=== PATIENT | male | born 1955 | race Caucasian/White ===

== ENCOUNTER → 2017-04-21 | Outpatient (CLI) | payer OTHER | END | disposition home or self-care (01) | LOC: CARD 12:46 | PROVIDERS: ATTEND Family Medicine | DX: R09.02 Hypoxemia (principal) | CPT/HCPCS: 94060; 94726; 94729 ==

== ENCOUNTER → 2017-07-27 | Outpatient (CLI) | payer OTHER ==
[2017-07-27 14:04] LABS: ABG COLLECTION SITE LEFT RADIAL; COLLATERAL CIRCULATION TESTING NORMAL
== END | disposition home or self-care (01) ==
LOC: CARD 13:28
PROVIDERS: ATTEND Internal Medicine Critical Care Medicine
DX: I35.8 Other nonrheumatic aortic valve disorders (principal); I11.9 Hypertensive heart disease without heart failure; I77.819 Aortic ectasia, unspecified site; E78.5 Hyperlipidemia, unspecified
CPT/HCPCS: 36600; 82803; 93306

== ENCOUNTER → 2017-09-20 | Outpatient (CLI) | payer OTHER ==
[~2017-09-20] MED LIST: OMNIPAQUE 350 MG/ML, 100ML BOTTLE ONE
== END | disposition home or self-care (01) ==
LOC: CFH 12:59
PROVIDERS: ATTEND Nurse Practitioner Family
DX: R09.02 Hypoxemia (principal)
CPT/HCPCS: 71275; Q9967

== ENCOUNTER → 2017-09-22 | Outpatient (CLI) | payer OTHER | END | disposition home or self-care (01) | LOC: CVU 12:46 | PROVIDERS: ATTEND Nurse Practitioner Family | DX: I07.1 Rheumatic tricuspid insufficiency (principal); R09.02 Hypoxemia | CPT/HCPCS: 93306 ==

== ENCOUNTER → 2018-03-31 | Outpatient (CLI) | payer OTHER ==
[~2018-03-31] MED LIST changes: +ALBU8.5H8 INH; +ATEN50TA41 PO; +ATOR20TA9 PO; +AZEL137S4 NAS; +CETI10CA PO; +COLE1TAB2 PO; +FLUT100B INH; +FLUT9.9S NS; +GLUC-88 PO; +HYDR25TA6 PO; -OMNIPAQUE 350 MG/ML, 100ML BOTTLE ONE; +PRED10TA PO
[2018-03-31 09:49] LABS: ALANINE AMINOTRANSFERASE 37 U/L (12-78); ANION GAP 3 mmol/L (5-15); CALCIUM 9.4 mg/dL (8.5-10.1); CHLORIDE 100 mmol/L (98-107); CREATININE 1.05 mg/dL (0.7-1.3)
[2018-03-31 09:51] LABS: ALKALINE PHOSPHATASE 91 U/L (45-117); BILIRUBIN,TOTAL 0.6 mg/dL (0.2-1.0); TOTAL PROTEIN 8.5 g/dL (6.4-8.2)
== END | disposition home or self-care (01) ==
LOC: STAR 08:40
PROVIDERS: ATTEND Otolaryngology
DX: Z01.818 Encounter for other preprocedural examination (principal); J32.3 Chronic sphenoidal sinusitis
CPT/HCPCS: 36415; 80053; 93005

== ENCOUNTER 2018-04-04 06:08 | Observation (INO) | payer OTHER ==
[~2018-04-04] VITALS: Ht 185.4 cm; Wt 104.1 kg
[2018-04-04] MEDS ORDERED: BACITRACIN OINT 500U/GM, 15 GM ONE (06:36)
[2018-04-04] MEDS ORDERED: LIDOCAINE 1%-EPI 1:100K, 30ML ONE (06:36)
[2018-04-04] MEDS ORDERED: EPINEPHRINE TOPICAL SOLN 1 MG/ML, 30ML ONE (06:36)
[2018-04-04] MEDS ORDERED: FLUORESCEIN SODIUM 500 MG/5 ML ONE (06:36)
[2018-04-04] MEDS ORDERED: OXYMETAZOLINE NASAL SPRAY 0.05%, 15ML ONE (06:37)
[2018-04-04] MEDS ORDERED: LIDOCAINE-MPF 1%, 5ML ONE (06:55)
[2018-04-04] MEDS ORDERED: LIDOCAINE-MPF 1%, 2ML INFIL ONE (07:00)
[2018-04-04] MEDS: LACTATED RINGERS 1,000 ML IV SCH ×2 (07:07→12:10)
[2018-04-04] MEDS ORDERED: FENTANYL PF 100 MCG/2ML ONE (08:04)
[2018-04-04] MEDS ORDERED: MIDAZOLAM 1 MG/ML, 2ML ONE (08:04)
[2018-04-04] MEDS ORDERED: ROCURONIUM 10MG/ML,5ML ONE (08:07)
[2018-04-04] MEDS ORDERED: PROPOFOL 10 MG/ML, 20ML ONE (08:07)
[2018-04-04] MEDS ORDERED: SUCCINYLCHOLINE 20 MG/ML, 10ML ONE (08:07)
[2018-04-04] MEDS ORDERED: ONDANSETRON 2MG/ML, 2ML ONE (08:09)
[2018-04-04] MEDS ORDERED: EPHEDRINE 50 MG/ML, 1ML ONE (08:09)
[2018-04-04] MEDS ORDERED: CEFAZOLIN 1,000 MG ONE (08:09)
[2018-04-04] MEDS ORDERED: PROPOFOL 10 MG/ML, 50ML ONE (08:09)
[2018-04-04] MEDS ORDERED: DEXAMETHASONE 4 MG/ML, 5ML ONE (08:09)
[2018-04-04] MEDS ORDERED: PHENYLEPHRINE 10 MG/ML ONE (08:09)
[2018-04-04] MEDS ORDERED: OXYcodone 5 MG/5 ML ORAL.SOL UDC PO PRN (09:30)
[2018-04-04] MEDS ORDERED: PROMETHAZINE 25 MG/ML, 1ML IV PRN (09:30)
[2018-04-04] MEDS ORDERED: ACETAMINOPHEN 325 MG TABLET PO PRN (09:30)
[2018-04-04] MEDS ORDERED: ALBUTEROL/IPRATROPIUM 2.5MG/0.5MG, 3 ML NPPB PRN (09:30)
[2018-04-04] MEDS ORDERED: FENTANYL PF 100 MCG/2ML IV PRN (09:30)
[2018-04-04] MEDS ORDERED: MORPHINE SULFATE 4 MG/ML, 1ML IVPush PRN (11:30)
[2018-04-04] MEDS ORDERED: ALBUTEROL SULFATE 2.5 MG/3 ML NPPB PRN (11:30)
[2018-04-04] MEDS ORDERED: ONDANSETRON 2MG/ML, 2ML IVPush PRN (11:30)
[2018-04-04] MEDS ORDERED: ONDANSETRON ODT 4 MG PO PRN (11:30)
[2018-04-04] MEDS ORDERED: COLESTIPOL 1 GM TABLET PO PRN (11:30)
[2018-04-04] MEDS: AMPICILLIN/SULBACTAM 3 GM in SODIUM CHLORIDE 0.9% 100 ML IV SCH ×3 (12:10→23:34)
[2018-04-04] MEDS: HYDROCHLOROTHIAZIDE 25 MG TABLET PO SCH (12:11)
[2018-04-04 13:11] VITALS: BP 151/83
[2018-04-04] MEDS: HYDROcodone/APAP 5/325 TABLET PO PRN ×3 (13:40→23:37)
[2018-04-04 19:41] VITALS: BP 113/66
[2018-04-04] MEDS ORDERED: ATENOLOL 50 MG TABLET PO SCH (21:00)
[2018-04-04] MEDS ORDERED: ATORVASTATIN 20 MG TABLET PO SCH (21:00)
[2018-04-04 23:26] VITALS: BP 119/72
[2018-04-05 03:24] VITALS: BP 135/83
[2018-04-05] MEDS: AMPICILLIN/SULBACTAM 3 GM in SODIUM CHLORIDE 0.9% 100 ML IV SCH (06:05)
[2018-04-05 08:44] VITALS: BP 146/86
[2018-04-05] MEDS ORDERED: FLUTICASONE FUROATE 100MCG/INH INH SCH (09:00)
[2018-04-05] MEDS ORDERED: CETIRIZINE 10 MG TABLET PO SCH (09:00)
[2018-04-05] MEDS ORDERED: HYDROCHLOROTHIAZIDE 25 MG TABLET PO SCH (09:00)
[2018-04-05] MEDS: HYDROCHLOROTHIAZIDE 25 MG TABLET PO SCH (09:08)
== END 2018-04-05 10:48 | disposition home or self-care (01) ==
LOC: OUT 06:08 → 4NOR 11:06 → OUT 11:35 → 4NOR 16:13 → DCLOUNGE 04-05 10:34
PROVIDERS: ADMIT Otolaryngology; ATTEND Otolaryngology
DX: J32.8 Other chronic sinusitis (principal); J45.909 Unspecified asthma, uncomplicated
CPT/HCPCS: 31255; 31267; 31276; 31288; 87070; 87075; 87077; 87186; 87205; 88304; 96365; 96366; G0378; J0295; J0330; J0690; J1100; J2250; J2370; J2405; J2704; J3010; J3490; J7120; J7512

== ENCOUNTER 2018-05-17 17:06 | Emergency (ER) | payer OTHER ==
[~2018-05-17] VITALS: Ht 182.9 cm; Wt 103.0 kg
[2018-05-17 17:57] LABS: BASOPHILS # (AUTO) 0.04 x10^3/uL (0-0.1); BASOPHILS % (AUTO) 0 % (0-1); EOSINOPHILS # (AUTO) 0.63 x10^3/uL (0-0.4); EOSINOPHILS % (AUTO) 6 % (1-7); LYMPHOCYTES # (AUTO) 0.63 x10^3/uL (1-3.4); LYMPHOCYTES % (AUTO) 6 % (22-44); MD NO; MEAN CORPUSCULAR HGB CONC 34.1 g/dL (33.2-36.2); MEAN CORPUSCULAR VOLUME 90.9 fL (81-97); MEAN PLATELET VOLUME 7.9 fL (7.4-10.4); MONOCYTES # (AUTO) 0.49 x10^3/uL (0.2-0.8); MONOCYTES % (AUTO) 5 % (2-9); NEUTROPHILS # (AUTO) 8.17 x10^3/uL (1.8-6.8); NEUTROPHILS % (AUTO) 82 % (42-75); PLATELET COUNT 277 x10^3/uL (130-400); RED CELL DISTRIBUTION WIDTH 13.4 % (9.4-14.8)
[2018-05-17] MEDS ORDERED: ALBUTEROL/IPRATROPIUM 2.5MG/0.5MG, 3 ML NPPB ONE (18:00)
[2018-05-17] MEDS ORDERED: ALBUTEROL/IPRATROPIUM 2.5MG/0.5MG, 3 ML ONE (18:00)
[2018-05-17 18:09] LABS: ALBUMIN 3.7 g/dL (3.4-5.0); ANION GAP 8 mmol/L (5-15); CHLORIDE 103 mmol/L (98-107)
[2018-05-17 18:14] LABS: CREATININE 0.91 mg/dL (0.7-1.3); TROPONIN I < 0.015 ng/mL (0.000-0.045)
[2018-05-17] MEDS ORDERED: BACITRACIN ZINC OINT 500U/GM, 0.9 GM ONE (18:22)
[2018-05-17 19:37] VITALS: BP 112/68
== END 2018-05-17 19:43 | disposition home or self-care (01) ==
LOC: ED 17:43
DX: J98.01 Acute bronchospasm (principal); R55 Syncope and collapse; I10 Essential (primary) hypertension; E78.00 Pure hypercholesterolemia, unspecified
CPT/HCPCS: 36415; 71045; 80048; 82040; 84484; 85025; 93005; 94640; 99285; J7620

== ENCOUNTER → 2018-12-14 | Outpatient (CLI) | payer OTHER ==
[~2018-12-14] MED LIST changes: +ATOR20TA37 PO; -ATOR20TA9 PO
== END | disposition home or self-care (01) ==
LOC: CFH 14:01
PROVIDERS: ATTEND Nurse Practitioner Family
DX: R06.02 Shortness of breath (principal); R06.09 Other forms of dyspnea
CPT/HCPCS: 71250

== ENCOUNTER 2019-06-26 09:51 | Outpatient (CLI) | payer OTHER ==
[2019-06-26 11:10] LABS: ALBUMIN 3.8 g/dL (3.4-5.0); ANION GAP 5 mmol/L (5-15); CHLORIDE 103 mmol/L (98-107)
[2019-06-26 11:14] LABS: ALANINE AMINOTRANSFERASE 42 U/L (12-78); ALKALINE PHOSPHATASE 98 U/L (45-117); BILIRUBIN,TOTAL 0.8 mg/dL (0.2-1.0); TOTAL PROTEIN 7.9 g/dL (6.4-8.2)
[2019-06-26] MEDS ORDERED: LOSA50TA14 PO (11:24)
[2019-06-26] MEDS ORDERED: BUDE10.2 INH (11:36)
== END 2019-06-26 23:59 | disposition home or self-care (01) ==
LOC: STAR 09:51
PROVIDERS: ATTEND Otolaryngology
DX: Z01.818 Encounter for other preprocedural examination (principal); J32.0 Chronic maxillary sinusitis; J32.4 Chronic pansinusitis; J33.8 Other polyp of sinus; Z87.891 Personal history of nicotine dependence
CPT/HCPCS: 36415; 80053; 93005

== ENCOUNTER 2019-07-03 05:56 | Observation (INO) | payer OTHER ==
[~2019-07-03] VITALS: Ht 185.4 cm; Wt 110.0 kg
[~2019-07-03 05:56] MED LIST changes: +BUDE10.2 INH; +LOSA50TA14 PO
[2019-07-03] MEDS ORDERED: BACITRACIN OINT 500U/GM, 15 GM ONE (06:30)
[2019-07-03] MEDS ORDERED: FLUORESCEIN SODIUM 500 MG/5 ML ONE (06:30)
[2019-07-03] MEDS ORDERED: OXYMETAZOLINE NASAL SPRAY 0.05%, 15ML ONE (06:30)
[2019-07-03] MEDS ORDERED: LIDOCAINE 1%-EPI 1:100K, 20ML ONE (06:30)
[2019-07-03] MEDS ORDERED: LACTATED RINGERS 1,000 ML IV SCH (07:02)
[2019-07-03] MEDS ORDERED: EPINEPHRINE TOPICAL SOLN 1 MG/ML, 30ML ONE (07:03)
[2019-07-03] MEDS ORDERED: FLUT1BLS INH (07:08)
[2019-07-03] MEDS ORDERED: FENTANYL PF 250 MCG/5ML ONE (07:30)
[2019-07-03] MEDS ORDERED: MIDAZOLAM 1 MG/ML, 2ML ONE (07:30)
[2019-07-03] MEDS ORDERED: ROCURONIUM 10MG/ML,5ML ONE (07:34)
[2019-07-03] MEDS ORDERED: PROPOFOL 10 MG/ML, 20ML ONE (07:34)
[2019-07-03] MEDS ORDERED: CEFAZOLIN 1,000 MG ONE (07:34)
[2019-07-03] MEDS ORDERED: GLYCOPYRROLATE 0.2MG/1ML, 5ML ONE (07:34)
[2019-07-03] MEDS ORDERED: NEOSTIGMINE 1 MG/ML, 10ML ONE (07:34)
[2019-07-03] MEDS ORDERED: DEXAMETHASONE 4 MG/ML, 1ML ONE (08:24)
[2019-07-03] MEDS ORDERED: ONDANSETRON 2MG/ML, 2ML ONE (08:24)
[2019-07-03] MEDS ORDERED: LABETALOL 5MG/ML, 20ML IV PRN (08:30)
[2019-07-03] MEDS ORDERED: PROMETHAZINE 25 MG/ML, 1ML IV PRN (08:30)
[2019-07-03] MEDS ORDERED: HYDROmorphone 2 MG/ML, 1ML IVPush PRN (08:30)
[2019-07-03] MEDS ORDERED: HALOPERIDOL 5 MG/ML IV PRN (08:30)
[2019-07-03] MEDS ORDERED: MORPHINE SULFATE 4 MG/ML, 1ML IVPush PRN ×2 (08:30→13:30)
[2019-07-03] MEDS ORDERED: FENTANYL PF 100 MCG/2ML IV PRN (08:30)
[2019-07-03] MEDS ORDERED: hydrALAzine 20 MG/ML, 1ML IV PRN (08:30)
[2019-07-03] MEDS ORDERED: ALBUTEROL SULFATE 2.5 MG/3 ML NPPB PRN (08:30)
[2019-07-03] MEDS ORDERED: ACETAMINOPHEN 325 MG TABLET PO PRN (08:30)
[2019-07-03] MEDS ORDERED: OXYcodone 5 MG/5 ML ORAL.SOL UDC PO PRN ×2 (08:30→12:00)
[2019-07-03] MEDS ORDERED: MEPERIDINE/PF 25MG/ML,1ML IVPush PRN (08:30)
[2019-07-03] MEDS ORDERED: CIPROFLOXACIN/PMX 400MG/200ML 200 ML ONE (08:36)
[2019-07-03] MEDS ORDERED: ACETAMINOPHEN 650 MG/20.3 ML UDC ONE (11:35)
[2019-07-03] MEDS ORDERED: OXYcodone 5 MG/5 ML ORAL.SOL UDC ONE (11:35)
[2019-07-03] MEDS ORDERED: ONDANSETRON 2MG/ML, 2ML IVPush PRN (13:30)
[2019-07-03] MEDS ORDERED: HYDROcodone/APAP 5/325 TABLET PO PRN (13:30)
[2019-07-03 13:44] VITALS: BP 135/79
[2019-07-03] MEDS ORDERED: VILANTEROL MC SCH (14:00)
[2019-07-03] MEDS ORDERED: COLESTIPOL MC SCH (14:00)
[2019-07-03] MEDS ORDERED: BUDESONIDE MC SCH (14:00)
[2019-07-03] MEDS ORDERED: FLUTICASONE FUROATE MC SCH (14:00)
[2019-07-03] MEDS ORDERED: PROAIR INH PRN (14:00)
[2019-07-03] MEDS ORDERED: FORMOTEROL MC SCH (14:00)
[2019-07-03] MEDS: LACTATED RINGERS 1,000 ML IV SCH (15:44)
[2019-07-03 19:46] VITALS: BP 126/78
[2019-07-03] MEDS ORDERED: SYMBICORT INH SCH (21:00)
[2019-07-03] MEDS ORDERED: ATORVASTATIN 20 MG TABLET PO SCH (21:00)
[2019-07-03] MEDS: CIPROFLOXACIN 500 MG TABLET PO SCH (21:00)
[2019-07-04] MEDS: LACTATED RINGERS 1,000 ML IV SCH (02:00)
[2019-07-04 02:49] VITALS: BP 120/72
[2019-07-04 07:29] VITALS: BP 129/75
[2019-07-04] MEDS: CIPROFLOXACIN 500 MG TABLET PO SCH (08:31)
[2019-07-04] MEDS ORDERED: HYDROCHLOROTHIAZIDE 25 MG TABLET PO SCH (09:00)
[2019-07-04] MEDS ORDERED: LOSARTAN 50MG TABLET PO SCH (09:00)
[2019-07-04] MEDS ORDERED: CIPR500T87 PO (09:28)
== END 2019-07-04 10:00 | disposition home or self-care (01) ==
LOC: OUT 05:56 → 4NE 12:10 → 4EST 14:36 → OUT 20:11 → 4NE 20:11 → DCLOUNGE 07-04 09:56
PROVIDERS: ADMIT Otolaryngology; ATTEND Otolaryngology
DX: J32.0 Chronic maxillary sinusitis (principal); J32.4 Chronic pansinusitis; J33.8 Other polyp of sinus; E03.9 Hypothyroidism, unspecified; G47.33 Obstructive sleep apnea (adult) (pediatric); I10 Essential (primary) hypertension
CPT/HCPCS: 30999; 31255; 31267; 31288; 88304; 88311; G0378; J0690; J0744; J1100; J2250; J2405; J2704; J2710; J3010; J3490; J7120